=== PATIENT | female | born 1990 | race Two or more races ===

== ENCOUNTER 2024-04-26 12:02 | Emergency (ER) | payer OTHER ==
[~2024-04-26] VITALS: Ht 162.6 cm; Wt 72.1 kg
[2024-04-26] MEDS ORDERED: SYNTHROID125 MCG PO (12:29)
[2024-04-26 14:28] LABS: HEMATOCRIT 30.1 % (36.0-45.00); MEAN CELL VOLUME 71.7 fL (80.00-100.00); MEAN CORPUSCULAR HGB CONC 33.3 g/dl (32.0-36.0); PLATELET COUNT 327 K/uL (150-450); RED BLOOD COUNT 4.19 M/uL (4.00-6.00); RED CELL DISTRIBUTION WIDTH 16.4 % (11.5-14.5)
[2024-04-26 14:31] LABS: MEAN CORPUSCULAR HEMOGLOBIN 23.8 pg (27.00-32.0)
[2024-04-26 14:44] LABS: PH,URINE 6.5 (5.0-8.0); URINE APPEARANCE Clear; URINE BILIRRUBIN Negative (NEGATIVE); URINE BLOOD Negative; URINE COLOR Yellow; URINE GLUCOSE Negative (NEGATIVE); URINE KETONE Negative (NEGATIVE); URINE LEUKOCYTE Negative; URINE NITRATE Negative; URINE PROTEIN Negative (NEGATIVE)
[2024-04-26 14:45] LABS: URINE BACTERIA 396.8 uL (0.0-1933); URINE EPITHELIAL CELLS 14.5 uL (0.0-38.8); URINE WBC 21.6 uL (0.0-23.2)
[2024-04-26 14:47] LABS: URINE RBC 1.6 uL (0.0-20.8)
[2024-04-26 15:14] LABS: CALCIUM 8.8 mg/dL (8.5-10.1); CREATININE SERUM 0.59 mg/dL (0.55-1.02); GFR 115.99; POTASSIUM 4.12 mEq/L (3.5-5.1)
== END 2024-04-26 18:01 | disposition home or self-care (01) ==
LOC: ER 12:03
PROVIDERS: Emergency Medicine
DX: O20.8 Other hemorrhage in early pregnancy (principal)